=== PATIENT | female | born 2005 ===

== ENCOUNTER 2025-04-20 11:44 | Emergency (ER) | payer OTHER ==
[~2025-04-20] VITALS: Ht 165.1 cm; Wt 49.0 kg
[2025-04-20 11:46] VITALS: TEMP 36.8; O2SAT 100
[2025-04-20 11:47] VITALS: O2SAT 100
[2025-04-20 12:31] VITALS: BP 108/75; PULSE 115; RESP 18
[2025-04-20] MEDS: IBUPROFEN 600MG TABLET PO ONE (12:31)
== END 2025-04-20 13:12 | disposition home or self-care (01) ==
LOC: ER 11:44
DX: S93.402A Sprain of unspecified ligament of left ankle, initial encounter (principal); X50.1XXA Overexertion from prolonged static or awkward postures, initial encounter; Y93.89 Activity, other specified; Y92.89 Other specified places as the place of occurrence of the external cause; Y99.8 Other external cause status
CPT/HCPCS: 99284; 73610; 73630; A6449